=== PATIENT | female | born 1990 | race Caucasian/White ===

== ENCOUNTER 2017-12-16 11:17 | Inpatient (IN) | payer SELFPAY ==
[~2017-12-16] VITALS: Ht 165.1 cm; Wt 55.0 kg
[2017-12-16] MEDS ORDERED: ZOLPIDEM TARTRATE 10 MG TABLET PO PRN (14:45)
[2017-12-16] MEDS ORDERED: HALOPERIDOL LACTATE 5 MG/ML VIAL IM ONE (15:00)
[2017-12-16] MEDS ORDERED: DiphenhydrAMINE HCL 50 MG/ML VIAL IM ONE (15:00)
[2017-12-16] MEDS ORDERED: LORazepam 2 MG/ML VIAL IM ONE (15:00)
[2017-12-16 17:11] LABS: EOSINOPHILS % (AUTO) 4.7 % (1.0-6.0); HEMATOCRIT 38.1 % (36-46); LYMPHOCYTES # (AUTO) 1.9 K/uL (1.0-4.8); LYMPHOCYTES % (AUTO) 38.4 % (22.0-44.0); MEAN CORPUSCULAR HEMOGLOBIN 30.3 pg (26.0-34.0); MEAN CORPUSCULAR HGB CONC 34.2 G/dL (31.0-37.0); MEAN CORPUSCULAR VOLUME 89 fL (80-100); MONOCYTES # (AUTO) 0.4 K/uL (0.1-1.0); MONOCYTES % (AUTO) 8.2 % (2.0-9.0); NEUTROPHILS # (AUTO) 2.4 K/uL (1.8-7.7); NEUTROPHILS % (AUTO) 47.7 % (40.0-70.0); PLATELET COUNT (AUTO) 295 K/uL (150-450); RED CELL DISTRIBUTION WIDTH 12.7 % (11.5-14.5)
[2017-12-16 17:19] LABS: ANION GAP 8 mmol/L (8-16); CALCIUM, TOTAL 8.9 mg/dL (8.8-10.5); CARBON DIOXIDE 28 mmol/L (22-29); CHLORIDE 107 mmol/L (98-107); CREATININE 0.64 mg/dL (0.60-1.30); GLOMERULAR FILTR. RATE CALC > 60 mL/min (>60); GLUCOSE,RANDOM 103 mg/dL (70-110); POTASSIUM 3.9 mmol/L (3.5-5.1); SODIUM SERUM 143 mmol/L (136-145); UREA NITROGEN, BLOOD 6 mg/dL (7-18)
[2017-12-16 17:25] LABS: ALANINE AMINOTRANSFERASE 79 U/L (12-78); ALBUMIN 3.4 g/dL (3.4-5.0); ALKALINE PHOSPHATASE 99 U/L (46-116); ASPARTATE AMINOTRANSFERASE 31 U/L (15-37); BILIRUBIN,TOTAL 0.8 mg/dL (0.1-1.0); TOTAL PROTEIN, SERUM 6.8 g/dL (6.4-8.2)
[2017-12-16 20:37] VITALS: BP 113/61
[2017-12-16] MEDS ORDERED: INFLUENZA VIRUS VACCINE QVS 2017-18 (3YR+)/PF 60 MCG/0.5 ML SYRINGE IM ONE (21:00)
[2017-12-17 07:07] VITALS: BP 110/70
[2017-12-17] MEDS ORDERED: ALBUTEROL SULFATE HFA 90 MCG/PUFF 8 GM INHALER IH PRN (10:15)
[2017-12-17] MEDS ORDERED: BENZOCAINE/MENTHOL LOZENGE MM PRN (10:15)
[2017-12-17] MEDS ORDERED: ONDANSETRON HCL 4 MG TABLET PO PRN (10:15)
[2017-12-17] MEDS ORDERED: PETROLATUM,WHITE 71 GM JELLY TP PRN (10:15)
[2017-12-17] MEDS ORDERED: MAGNESIUM HYDROXIDE SUSPENSION 30 ML UDCUP PO PRN (10:15)
[2017-12-17] MEDS ORDERED: IBUPROFEN 600 MG TABLET PO PRN (10:15)
[2017-12-17] MEDS ORDERED: LOPERAMIDE HCL 2 MG CAPSULE PO PRN (10:15)
[2017-12-17] MEDS ORDERED: ACETAMINOPHEN 325 MG TABLET PO PRN (10:15)
[2017-12-17] MEDS ORDERED: CloNIDine HCL 0.1 MG TABLET PO PRN (10:15)
[2017-12-17] MEDS ORDERED: MAG HYDROX/AL HYDROX/SIMETH ES 30 ML SUSPENSION UDCUP PO PRN (10:15)
[2017-12-17] MEDS ORDERED: BACITRACIN 28.4 GM OINTMENT TP PRN (10:15)
[2017-12-18] MEDS: LORazepam 2 MG TABLET PO PRN (11:50)
[2017-12-18] MEDS: HALOPERIDOL 5 MG TABLET PO PRN (13:49)
[2017-12-18 16:16] VITALS: BP 121/70
[2017-12-18] MEDS: RisperiDONE 1 MG TABLET PO SCH (17:30)
[2017-12-19 05:45] VITALS: BP 133/88
[2017-12-19 08:45] VITALS: BP 103/57
[2017-12-19] MEDS: LORazepam 2 MG TABLET PO PRN (09:28)
[2017-12-19] MEDS: HALOPERIDOL 5 MG TABLET PO PRN (09:28)
[2017-12-19] MEDS: RisperiDONE 1 MG TABLET PO SCH ×2 (09:29→16:33)
[2017-12-19 16:13] VITALS: BP 114/68
[2017-12-20 05:57] VITALS: BP 117/76
[2017-12-20] MEDS: RisperiDONE 1 MG TABLET PO SCH (08:14)
[2017-12-20 08:57] VITALS: BP 118/69
[2017-12-20] MEDS ORDERED: RISP1TAB89 PO (11:58)
== END 2017-12-20 12:53 | disposition home or self-care (01) | DRG 885 ==
LOC: EMS 11:26 → EEVIPCON 11:26 → B3A 18:27 → EMS 19:47 → B3A 22:53
PROVIDERS: ADMIT Psychiatry & Neurology Psychiatry; ATTEND Psychiatry & Neurology Psychiatry
PROC: 3E0234Z Introduction of Serum, Toxoid and Vaccine into Muscle, Percutaneous Approach (ICD-10-PCS; principal; 2017-12-16)
DX: F20.0 Paranoid schizophrenia (principal); Z78.1 Physical restraint status; F17.210 Nicotine dependence, cigarettes, uncomplicated; F31.9 Bipolar disorder, unspecified; G47.00 Insomnia, unspecified; F41.9 Anxiety disorder, unspecified; Z23 Encounter for immunization
CPT/HCPCS: 96372; 99291; G0480; J1200; J1630; J2060